=== PATIENT | female | born 1950 | race Caucasian/White ===

== ENCOUNTER 2018-07-20 16:34 | Emergency (ER) | payer BC, MEDICARE ==
[2018-07-20] MEDS ORDERED: HYDROmorphone 0.5 MG/0.5 ML SYRINGE IVPUSH ONE ×3 (17:34→19:46)
[2018-07-20] MEDS ORDERED: methylPREDNISolone Sodium Succinate 125 MG/2 ML SDV IVPUSH ONE (17:34)
[2018-07-20] MEDS ORDERED: Sodium Chloride 0.9% 10 ML Syringe FLUSH PRN (17:34)
[2018-07-20] MEDS ORDERED: Ketorolac 30 MG/ML SDV IVPUSH SCH (17:45)
--- NOTE | 2018-07-20 18:56 | EDM.PDOC ---
ED HPI GENERAL MEDICAL PROBLEM - General Chief Complaint: Lower Extremity Injury/Pain Stated Complaint: LEFT LEG INJURY/PAIN Time Seen by Provider: 07/20/18 17:24 Source of Information: Reports: Patient, RN Notes Reviewed - History of Present Illness INITIAL COMMENTS - FREE TEXT/NARRATIVE: initial hx and exam was done by Yareli Salamanca, 4th year medical student. I have also examined patient. I agree with hx and exam as documented. X rays of L hip are good. She has sciatica. Pain has been treated with IV dilaudid. Discharge instr. as documented. Left Hip Pain Score (Numeric/FACES): 10 - Related Data Allergies Allergy/AdvReac Type Severity Reaction Status Date / Time No Known Allergies Allergy Verified 07/20/18 17:19 Home Meds: Home Meds Acetaminophen/HYDROcodone [[place] 325-5 MG] 1 tab PO Q6HR PRN #20 tablet [Rx] Adalimumab [Humira] 10 mg INJECT ASDIRECTED 07/20/18 [History] Folic Acid 1 mg PO DAILY 07/20/18 [History] Hydroxychloroquine Sulfate [Plaquenil] 200 mg PO BID 07/20/18 [History] Methotrexate Sodium [Methotrexate] 2.5 mg PO TH 07/20/18 [History] Naproxen [Naprosyn] 500 mg PO Q12HR #20 tab 07/20/18 [Rx] Past Medical History Musculoskeletal History: Reports: RA, Other (See Below) Other Musculoskeletal History: left hip issues Social & Family History - Tobacco Use Smoking Status *Q: Former Smoker Used Tobacco, but Quit: Yes Month/Year Tobacco Last Used: 20 yr - Caffeine Use Caffeine Use: Reports: Coffee, Soda Other Caffeine Use: diet coke - Recreational Drug Use Recreational Drug Use: No Review of Systems - Review of Systems Review Of Systems: See Below ED EXAM, GENERAL - Physical Exam Exam: See Below Course - Vital Signs Last Recorded V/S: Last Vital Signs Temp 97.6 F 07/20/18 17:16 Pulse 85 07/20/18 17:16 Resp 20 07/20/18 17:16 BP 184/79 H 07/20/18 17:16 Pulse Ox 99 07/20/18 17:16 - Orders/Labs/Meds Orders: Active Orders 24 hr Category Date Time Status Peripheral IV Care [RC] . DIRECTED Care 07/20/18 17:35 Active Hip Min 2V or 3V w Pelvis Lt [CR] Stat Exams 07/20/18 17:50 Taken Peripheral IV Insertion Adult [OM.PC] Stat Oth 07/20/18 17:34 Ordered Meds: Medications Discontinued Medications Generic Name Dose Route Start Last Admin Trade Name Freq PRN Reason Stop Dose Admin Hydromorphone HCl 0.5 mg 07/20/18 17:34 07/20/18 17:51 Dilaudid IVPUSH 07/20/18 17:35 0.5 mg ONETIME ONE Administration Hydromorphone HCl 0.5 mg 07/20/18 19:08 07/20/18 19:25 Dilaudid IVPUSH 07/20/18 19:09 0.5 mg ONETIME ONE Administration Hydromorphone HCl 0.5 mg 07/20/18 19:46 07/20/18 20:02 Dilaudid IVPUSH 07/20/18 19:47 0.5 mg ONETIME ONE Administration Ketorolac Tromethamine 30 mg 07/20/18 17:45 07/20/18 17:50 Toradol IVPUSH 30 mg ONETIME [place] Administration Methylprednisolone Sodium Succinate 125 mg 07/20/18 17:34 07/20/18 17:49 Solu-Medrol IVPUSH 07/20/18 17:35 125 mg ONETIME ONE Administration Sodium Chloride 10 ml 07/20/18 17:34 07/20/18 17:51 Saline Flush FLUSH 10 ml ASDIRECTED PRN Administration Keep Vein Open Departure - Departure Time of Disposition: 18:55 Disposition: Home, Self-Care 01 Condition: Fair Clinical Impression: Sciatica of left side - Discharge Information Prescriptions: Acetaminophen/HYDROcodone [[place] 325-5 MG] 1 tab PO Q6HR PRN #20 tablet PRN Reason: Pain Naproxen [Naprosyn] 500 mg PO Q12HR #20 tab Instructions: Sciatica, Ohyd-up-Ccvl Referrals: Jeanne Caballero [employer] [Primary Care Provider] - Forms: ED Department Discharge, ED Return to Work/School Form Additional Instructions: rest back, no heavy lifting, alternate heat and ice to L low back as needed, Naprosyn 500 mg twice daily for pain and inflamation. Prednisone as prescribed. You may take tylenol in addition up to 3 times daily for extra pain relief or hydrocodone if needed for severe pain. Do not take tylenol and hydrocodone at the same time. See [place] at the clinic in about 1 week for follow up. Call for appt. Physical Therapy strongly recomended if not much better within 3 to 4 days. - My Orders Last 24 Hours: My Active Orders 07/20/18 17:34 Peripheral IV Insertion Adult [OM.PC] Stat 07/20/18 17:35 Peripheral IV Care [RC] . DIRECTED 07/20/18 17:50 Hip Min 2V or 3V w Pelvis Lt [CR] Stat - Assessment/Plan Last 24 Hours: My Active Orders 07/20/18 17:34 Peripheral IV Insertion Adult [OM.PC] Stat 07/20/18 17:35 Peripheral IV Care [RC] . DIRECTED 07/20/18 17:50 Hip Min 2V or 3V w Pelvis Lt [CR] Stat
--- NOTE | 2018-07-21 07:39 | CR ---
Pelvis and left hip: AP view of the pelvis was obtained as well as AP view of the left hip and lateral view of the left hip. Comparison: No prior pelvis or hip exam. Sclerotic area is identified within the superior left pubic ramus most likely due to bone island. Joint spaces within both hips are maintained. Sacroiliac joints appear within normal limits. Second sclerotic lesion is seen overlying the lower left sacroiliac joint most likely due to bone island. Joint spaces within both hips are maintained. No fracture or dislocation is seen. Mild disc space narrowing and endplate osteophytes are seen within the lower lumbar spine. Impression: 1. Sclerotic areas within the left hemipelvis believed to represent bone islands. 2. Mild degenerative change within the visualized lower lumbar spine. 3. AP pelvis and two-view left hip exam is otherwise unremarkable. Diagnostic code #2
== END 2018-07-20 20:35 | disposition home or self-care (01) ==
LOC: JD.ED 16:34
DX: M54.42 Lumbago with sciatica, left side (principal); Z87.891 Personal history of nicotine dependence; Z79.899 Other long term (current) drug therapy
CPT/HCPCS: 73502; 96374; 96375; 96376; 99283; J1170; J1885; J2930; J7050

== ENCOUNTER → 2021-09-12 | Day surgery (SDC) | payer BC ==
[~2021-09-12] MED LIST: Dexamethasone 4 MG/ML 5 ML MDV ONE; Lactated Ringers 1,000 ML IV SCH; Lidocaine 1%/Sod Bicarbonate in NS 8.4% 1 ML Syringe IDERM PRN; Midazolam 1 MG/ML 2 ML SDV ONE; Ondansetron 4 MG/2 ML SDV ONE; Propofol 200 MG/20 ML SDV ONE; Scopolamine 1.5 MG Transdermal Patch TOP ONE; Sodium Chloride 0.9% 10 ML Syringe FLUSH PRN; ceFAZolin 1 GM Vial ONE; fentaNYL 100 MCG/2 ML SDV ONE
--- NOTE | 2021-09-12 11:53 | PCM.PREANE ---
Preanesthetic Assessment - Procedure Proposed Procedure: Right lower leg mass - Anesthesia/Transfusion/Family Hx Anesthesia History: Prior Anesthesia Reaction Type of Anesthesia Reaction: Excessive Nausea/Vomiting Family History of Anesthesia Reaction: No Transfusion History: No Prior Transfusion(s) Intubation History: Unknown - Review of Systems General: No Symptoms Pulmonary: No Symptoms Cardiovascular: No Symptoms Gastrointestinal: No Symptoms Neurological: No Symptoms Other: Reports: Depression - Physical Assessment NPO Status Date: 09/11/21 NPO Status Time: 18:00 Vital Signs: Last Vital Signs Temp Pulse 71 09/12/21 10:00 Resp 16 09/12/21 10:00 BP 160/58 H 09/12/21 10:00 Pulse Ox 97 09/12/21 10:00 Temp 97.6 Height: 1.57 m Weight: 77.2 kg ASA Class: 2 Mental Status: Alert & Oriented x3 Airway Class: Mallampati = 3 Dentition: Reports: Caries Thyro-Mental Finger Breadths: 2 Mouth Opening Finger Breadths: 2 ROM/Head Extension: Full Lungs: Clear to Auscultation, Normal Respiratory Effort Cardiovascular: Regular Rate, Regular Rhythm, No Murmurs - Lab Values: Labs reviewed and okay to proceed - Imaging/EKG Impressions: EKG NSR HR 62 - Allergies Allergies/Adverse Reactions: Allergies Allergy/AdvReac Type Severity Reaction Status Date / Time No Known Allergies Allergy Verified 09/11/21 13:21 - Acknowledgements Anesthesia Type Planned: MAC Pt an Appropriate Candidate for the Planned Anesthesia: Yes Alternatives and Risks of Anesthesia Discussed w Pt/Guardian: Yes Pt/Guardian Understands and Agrees with Anesthesia Plan: Yes PreAnesthesia Questionnaire HEENT History: Reports: Impaired Vision Cardiovascular History: Reports: None, Hypertension Respiratory History: Reports: Other (See Below) Other Respiratory History: BRONCHITIS Gastrointestinal History: Reports: None Genitourinary History: Reports: None NAIL CUTTER History: Reports: None Musculoskeletal History: Reports: Arthritis, Osteoarthritis, RA, Other (See Below) Other Musculoskeletal History: LUMBAR DEGNERATIVE JOINT DISEASE, LEFT KNEE PAIN, RA Neurological History: Reports: Other (See Below) Other Neuro History: LUMBAR RADICULOPATHY Psychiatric History: Reports: Depression Endocrine/Metabolic History: Reports: None Hematologic History: Reports: None Immunologic History: Reports: None Oncologic (Cancer) History: Reports: None Dermatologic History: Reports: Other (See Below) Other Dermatologic History: INTERTRIGINOUS CANDIDIASIS, SOFT TISSUE MASS - Infectious Disease History Infectious Disease History: Reports: None - Past Surgical History Head Surgeries/Procedures: Reports: None HEENT Surgical History: Reports: Cataract Surgery, Oral Surgery Cardiovascular Surgical History: Reports: None Respiratory Surgical History: Reports: None GI Surgical History: Reports: Appendectomy, EGD Female Surgical History: Reports: Hysterectomy, Oophorectomy Male Surgical History: Reports: None Endocrine Surgical History: Reports: None Musculoskeletal Surgical History: Reports: None Oncologic Surgical History: Reports: None Dermatological Surgical History: Reports: None - SUBSTANCE USE Tobacco Use Status *Q: Former Tobacco User (quit smoking 15 years ago) Tobacco Use Within Last Twelve Months: No Second Hand Smoke Exposure: No Days Per Week of Alcohol Use: 0 Number of Drinks Per Day: 0 Total Drinks Per Week: 0 Recreational Drug Use History: No - HOME MEDS Home Medications: Home Meds Cholecalciferol (Vitamin D3) [Vitamin D3] 2,000 unit PO DAILY 09/11/21 [History] Cyanocobalamin (Vitamin B-12) [Vitamin B-12] 1,000 mcg PO DAILY 09/11/21 [History] Lisinopril/Hydrochlorothiazide [Lisinopril-Hctz 20-25 mg Tab] 1 tab PO DAILY 09/11/21 [History] Venlafaxine [Effexor XR] 75 mg PO DAILY 09/11/21 [History] Vitamin B Complex 1 cap PO DAILY 09/11/21 [History] - CURRENT (IN HOUSE) MEDS Current Meds: Current Medications Lactated Ringer's (Ringers, Lactated) 1,000 mls @ 125 mls/hr IV ASDIRECTED [place] Stop: 09/12/21 23:00 Last Admin: 09/12/21 10:00 Dose: 125 mls/hr Documented by: Lidocaine/Sodium Bicarbonate (Lidocaine 1%/Sod Bicarbonate In Ns 8.4% 1 Ml Syringe) 0.25 ml IDERM ONETIME PRN PRN Reason: Prior to IV Start Stop: 09/12/21 23:00 Last Admin: 09/12/21 10:00 Dose: 0.25 ml Documented by: Sodium Chloride (Sodium Chloride 0.9% 10 Ml Syringe) 10 ml FLUSH ASDIRECTED PRN PRN Reason: Keep Vein Open Stop: 09/12/21 23:00
--- NOTE | 2021-09-12 13:17 | PCM48HPAN ---
Post Anesthesia Note - EVALUATION WITHIN 48HRS OF ANESTHETIC Vital Signs in Normal Range: Yes Patient Participated in Evaluation: Yes Respiratory Function Stable: Yes Airway Patent: Yes Cardiovascular Function Stable: Yes Hydration Status Stable: Yes Pain Control Satisfactory: Yes Nausea and Vomiting Control Satisfactory: Yes Mental Status Recovered: Yes Vital Signs: Last Vital Signs Temp Pulse 71 09/12/21 10:00 Resp 16 09/12/21 10:00 BP 160/58 H 09/12/21 10:00 Pulse Ox 97 09/12/21 10:00 Vital signs at 1308: 138/67 HR 71 RR: 10 97.6 94% RA
--- NOTE | 2021-09-27 06:42 | PCM.OPNOTE ---
- General Post-Op/Procedure Note Date of Surgery/Procedure: 09/12/21 Operative Procedure(s): right leg subcutaneous mass excision Pre Op Diagnosis: right leg subcutaneous mass Post-Op Diagnosis: Same Anesthesia Technique: Local, MAC Primary Surgeon: Raymond Massey Anesthesia Provider: Mago Beasley Pot Maker: Analy Najera EBL in mLs: 5 Complications: None Condition: Good
--- NOTE | 2021-09-27 07:51 | OR ---
DATE OF OPERATION: 09/12/2021 SURGEON: Raymond Massey MD OPERATION PERFORMED: Right leg subcutaneous mass excision. PREOPERATIVE DIAGNOSIS: Right leg subcutaneous mass. POSTOPERATIVE DIAGNOSIS: Right leg subcutaneous mass. ANESTHESIA: Local MAC. ANESTHESIA PROVIDER: Bro Sheehan MACHINE STEMMER: Analy Najera PA-C ESTIMATED BLOOD LOSS: 10 mL. COMPLICATIONS: None. CONDITION: Stable. DESCRIPTION OF PROCEDURE: The patient was identified in the preop holding area. Proper site was marked and identified by surgeon. The patient was taken back to the operating theater, where after adequate anesthesia, the patient's right lower extremity was sterilely prepped and draped in usual sterile fashion. OR time-out was performed. The patient received 2 g IV Ancef. At this time, 0.25% Marcaine and 1% lidocaine were used to anesthetize around the mass on the pretibial region on the midportion of the right tibia. Once this was done, longitudinal incision was made directly over the mass. The mass was identified in the subcutaneous tissues. It was roughly 2.5 cm x 2 cm. It did appear to be free from the soft tissues with good margins and planes with no signs of infiltrating the tissue. There were no signs of infection nor any fluid at this time. This was sent for permanent specimen. Adequate saline was irrigated through the wound and nylon suture was used for closure of the skin. The patient tolerated the procedure well and was sent to the PACU in stable condition in a sterile soft dressing. MMODAL /[id number]
== END | disposition home or self-care (01) ==
LOC: JD.SDS 09:28
PROVIDERS: ATTEND Orthopaedic Surgery
DX: D21.21 Benign neoplasm of connective and other soft tissue of right lower limb, including hip (principal); I10 Essential (primary) hypertension; M06.9 Rheumatoid arthritis, unspecified; Z91.041 Radiographic dye allergy status; Z79.899 Other long term (current) drug therapy; Z90.49 Acquired absence of other specified parts of digestive tract; Z98.890 Other specified postprocedural states; Z87.891 Personal history of nicotine dependence
CPT/HCPCS: 27618; A9270; J0690; J1100; J2250; J2405; J2704; J3010; J7120; 00400

== ENCOUNTER 2021-10-07 08:49 | Day surgery (SDC) | payer BC ==
[~2021-10-07 08:49] MED LIST changes: +Acetaminophen 325 MG Tab PO SCH; -Dexamethasone 4 MG/ML 5 ML MDV ONE; +Morphine 8 MG, EPINEPHrine 0.3 MG, Cefuroxime 750 MG, Ketorolac 30 MG, Sodium Chloride ... PRN; -Ondansetron 4 MG/2 ML SDV ONE; +Pregabalin 25 MG Cap PO SCH; -Scopolamine 1.5 MG Transdermal Patch TOP ONE; +Scopolamine 1.5 MG Transdermal Patch TOP SCH; +Vancomycin 1 GM SDV ONE; -ceFAZolin 1 GM Vial ONE; +oxyCODONE ER 10 MG TAB.ER PO SCH
[2021-10-07] MEDS ORDERED: ceFAZolin 1 GM Vial ONE (09:11)
[2021-10-07] MEDS ORDERED: Lactated Ringers 1,000 ML ONE (09:18)
--- NOTE | 2021-10-07 09:40 | PCM.PREANE ---
Preanesthetic Assessment - Anesthesia/Transfusion/Family Hx Anesthesia History: Prior Anesthesia Reaction Transfusion History: No Prior Transfusion(s) Intubation History: Unknown - Review of Systems General: No Symptoms Pulmonary: No Symptoms Cardiovascular: No Symptoms Gastrointestinal: No Symptoms Neurological: No Symptoms Other: Reports: None - Physical Assessment NPO Status Date: 10/06/21 NPO Status Time: 22:00 Vital Signs: Last Vital Signs Temp 97.0 F 10/07/21 07:17 Pulse 75 10/07/21 07:17 Resp 16 10/07/21 07:17 BP 152/77 H 10/07/21 07:17 Pulse Ox 95 10/07/21 07:17 Height: 1.57 m Weight: 76.4 kg ASA Class: 2 Mental Status: Alert & Oriented x3 Airway Class: Mallampati = 3 Dentition: Reports: Normal Dentition, [place](s) ROM/Head Extension: Full Lungs: Clear to Auscultation, Normal Respiratory Effort Cardiovascular: Regular Rate, Regular Rhythm - Lab Values: Laboratory Last Values Blood Type A POSITIVE 10/07/21 07:37 Gel Antibody Screen Negative 10/07/21 07:37 - Allergies Allergies/Adverse Reactions: Allergies Allergy/AdvReac Type Severity Reaction Status Date / Time No Known Allergies Allergy Verified 10/07/21 09:22 - Acknowledgements Anesthesia Type Planned: Spinal Pt an Appropriate Candidate for the Planned Anesthesia: Yes Alternatives and Risks of Anesthesia Discussed w Pt/Guardian: Yes Pt/Guardian Understands and Agrees with Anesthesia Plan: Yes PreAnesthesia Questionnaire HEENT History: Reports: Impaired Vision Cardiovascular History: Reports: Hypertension Respiratory History: Reports: Other (See Below) Other Respiratory History: BRONCHITIS Gastrointestinal History: Reports: None Genitourinary History: Reports: None WELDING MACHINE OPERATOR RESISTANCE History: Reports: None Musculoskeletal History: Reports: Arthritis, Osteoarthritis, RA, Other (See Below) Other Musculoskeletal History: LUMBAR DEGNERATIVE JOINT DISEASE, LEFT KNEE PAIN, RA Neurological History: Reports: Other (See Below) Other Neuro History: LUMBAR RADICULOPATHY Psychiatric History: Reports: Depression Endocrine/Metabolic History: Reports: None Hematologic History: Reports: None Immunologic History: Reports: None Oncologic (Cancer) History: Reports: None Dermatologic History: Reports: Other (See Below) Other Dermatologic History: INTERTRIGINOUS CANDIDIASIS, SOFT TISSUE MASS - Infectious Disease History Infectious Disease History: Reports: None - Past Surgical History Head Surgeries/Procedures: Reports: None HEENT Surgical History: Reports: Cataract Surgery, Oral Surgery Cardiovascular Surgical History: Reports: None Respiratory Surgical History: Reports: None GI Surgical History: Reports: Appendectomy, EGD Female Surgical History: Reports: Hysterectomy, Oophorectomy Male Surgical History: Reports: None Endocrine Surgical History: Reports: None Neurological Surgical History: Reports: None Musculoskeletal Surgical History: Reports: None Oncologic Surgical History: Reports: None Dermatological Surgical History: Reports: None - SUBSTANCE USE Tobacco Use Status *Q: Former Tobacco User Recreational Drug Use History: No - HOME MEDS Home Medications: Home Meds Cholecalciferol (Vitamin D3) [Vitamin D3] 2,000 unit PO DAILY 09/11/21 [History] Cyanocobalamin (Vitamin B-12) [Vitamin B-12] 1,000 mcg PO DAILY 09/11/21 [History] Lisinopril/Hydrochlorothiazide [Lisinopril-Hctz 20-25 mg Tab] 1 tab PO DAILY 09/11/21 [History] Vitamin B Complex 1 cap PO DAILY 09/11/21 [History] Apixaban [Eliquis] 2.5 mg PO BID #70 tablet 10/07/21 [Rx] Cyclobenzaprine [Flexeril] 10 mg PO BID PRN #20 tab 10/07/21 [Rx] oxyCODONE 5 - 10 mg PO Q4H PRN #40 tab 10/07/21 [Rx] - CURRENT (IN HOUSE) MEDS Current Meds: Current Medications Acetaminophen (Acetaminophen 325 Mg Tab) 975 mg PO ONETIME [place] Stop: 10/07/21 12:00 Last Admin: 10/07/21 07:40 Dose: 975 mg Documented by: Morphine Sulfate 8 mg/Epinephrine HCl 0.3 mg/Cefuroxime Sodium 750 mg/Ketorolac Tromethamine 30 mg/Sodium Chloride 7.9 ml 0 mg .XX ASDIRECTED PRN PRN Reason: Pain Stop: 10/07/21 16:00 Lactated Ringer's (Ringers, Lactated) 1,000 mls @ 125 mls/hr IV ASDIRECTED [place] Stop: 10/07/21 23:00 Last Admin: 10/07/21 07:35 Dose: 125 mls/hr Documented by: Lidocaine/Sodium Bicarbonate (Lidocaine 1%/Sod Bicarbonate In Ns 8.4% 1 Ml Syringe) 0.25 ml IDERM ONETIME PRN PRN Reason: Prior to IV Start Stop: 10/07/21 18:00 Last Admin: 10/07/21 07:35 Dose: 0.25 ml Documented by: Oxycodone HCl (Oxycodone Er 10 Mg Tab.Er) 10 mg PO ONETIME [place] Stop: 10/07/21 12:00 Last Admin: 10/07/21 07:40 Dose: 10 mg Documented by: Pregabalin (Pregabalin 25 Mg Cap) 50 mg PO ONETIME [place] Stop: 10/07/21 12:00 Last Admin: 10/07/21 07:40 Dose: 50 mg Documented by: Scopolamine (Scopolamine 1.5 Mg Transdermal Patch) 1.5 mg TOP ONETIME [place] Stop: 10/07/21 18:00 Last Admin: 10/07/21 07:45 Dose: 1.5 mg Documented by: Sodium Chloride (Sodium Chloride 0.9% 10 Ml Syringe) 10 ml FLUSH ASDIRECTED PRN PRN Reason: Keep Vein Open Stop: 10/07/21 18:00 Discontinued Medications Cefazolin Sodium (Cefazolin 1 Gm Vial) Confirm Administered Dose 2 gm .ROUTE .STK-MED ONE Stop: 10/07/21 09:12 Fentanyl (Fentanyl 100 Mcg/2 Ml Sdv) Confirm Administered Dose 100 mcg .ROUTE .STK-MED ONE Stop: 10/07/21 07:22 Lactated Ringer's (Ringers, Lactated) Confirm Administered Dose 1,000 mls @ as directed .ROUTE .STK-MED ONE Stop: 10/07/21 09:19 Midazolam HCl (Midazolam 1 Mg/Ml 2 Ml Sdv) Confirm Administered Dose 2 mg .ROUTE .STK-MED ONE Stop: 10/07/21 07:22 Propofol (Propofol 200 Mg/20 Ml Sdv) Confirm Administered Dose 400 mg .ROUTE .STK-MED ONE Stop: 10/07/21 07:22 Tranexamic Acid (Tranexamic Acid 1,000 Mg/10 Ml Amp) Confirm Administered Dose 1,000 mg .ROUTE .STK-MED ONE Stop: 10/07/21 07:44 Vancomycin HCl (Vancomycin 1 Gm Sdv) Confirm Administered Dose 1 gm .ROUTE .STK- MED ONE Stop: 10/07/21 07:44
[2021-10-07] MEDS ORDERED: ePHEDrine 50 MG/ML SDV ONE (11:00)
--- NOTE | 2021-10-07 11:03 | CR ---
Pelvis and right hip: AP view of the pelvis was obtained centered to both hips as well as crosstable lateral view of the right hip. Comparison: Prior CT right hip study of 09/27/21. Right hip prosthesis is noted. Components are aligned. Underlying bony structures show nothing acute. Slight soft tissue air is seen around the right hip. Impression: 1. Satisfactory postoperative radiographic appearance of right hip prosthesis. Diagnostic code #2
[2021-10-07] MEDS ORDERED: oxyCODONE 5 MG Tab PO PRN (11:45)
[2021-10-07] MEDS ORDERED: Cyclobenzaprine 10 MG Tab PO PRN (11:45)
--- NOTE | 2021-10-07 14:08 | PCM.POSTAN ---
POST ANESTHESIA ASSESSMENT - MENTAL STATUS Mental Status: Alert, Oriented - VITAL SIGNS Vital Signs: postoperative Vital Signs 102/53 69 HR 95% 11 RR 97.8 F - RESPIRATORY Respiratory Status: Respiratory Rate WNL, Airway Patent, O2 Saturation Stable - CARDIOVASCULAR CV Status: Pulse Rate WNL, Low Blood Pressure - GASTROINTESTINAL GI Status: No Symptoms - PAIN Pain Score: 0 - POST OP HYDRATION Hydration Status: Adequate & Stable
--- NOTE | 2021-10-07 14:17 | PCM48HPAN ---
Post Anesthesia Note - EVALUATION WITHIN 48HRS OF ANESTHETIC Vital Signs in Normal Range: Yes Patient Participated in Evaluation: Yes Respiratory Function Stable: Yes Airway Patent: Yes Cardiovascular Function Stable: Yes Hydration Status Stable: Yes Pain Control Satisfactory: Yes Nausea and Vomiting Control Satisfactory: Yes Mental Status Recovered: Yes Vital Signs: Last Vital Signs Temp 36.6 C 10/07/21 12:00 Pulse 69 10/07/21 12:00 Resp 12 10/07/21 12:00 BP 93/55 L 10/07/21 12:00 Pulse Ox 92 L 10/07/21 12:00
--- NOTE | 2021-10-13 18:31 | PCM.OPNOTE ---
- General Post-Op/Procedure Note Date of Surgery/Procedure: 10/07/21 Operative Procedure(s): right total hip arthroplasty with [employer] robotics Pre Op Diagnosis: right hip osteoarthrosis Post-Op Diagnosis: Same Anesthesia Technique: Local, MAC, Spinal Primary Surgeon: Raymond Massey Anesthesia Provider: Wilton Rahman Store Merchandiser: Analy Najera Store Merchandiser: Sandy Bain EBL in mLs: 50 Complications: None Condition: Good Free Text/Narrative:: 52 36-5 5
--- NOTE | 2021-10-27 18:15 | OR ---
DATE OF OPERATION: 10/07/2021 SURGEON: Raymond Massey MD OPERATION PERFORMED: Right total hip arthroplasty with [employer] robot[employer]. PREOPERATIVE DIAGNOSIS: Right hip osteoarthrosis. POSTOPERATIVE DIAGNOSIS: Right hip osteoarthrosis. ANESTHESIA: Local MAC with spinal. ANESTHESIA PROVIDER: Rama Osei. ASSISTANTS: Analy Najera PA-C; and Sandy Bain LPN. ESTIMATED FLUID LOSS: 50 mL. COMPLICATIONS: None. CONDITION: Stable. IMPLANT: 1. [place] size 52 mm solid Tritanium II acetabular cup. 2. 36 -5 Biolox femoral head. 3. Mag size 5 Accolade II stem. DESCRIPTION OF PROCEDURE: The patient was identified in the preoperative holding area. Proper site was marked and identified by the surgeon. The patient was taken back to the operating theater, where after adequate anesthesia, the patient was placed in a left lateral decubitus position. Axillary roll was placed. Pegs were placed and well padded. The patient's gluteal fold was parallel to the floor. Right hip was then sterilely prepped and draped in the usual sterile fashion. OR time- out was performed. The patient received 2 g of IV Ancef. Three small poke hole incisions were made over the iliac crest 3 fingerbreadths posterior to the ASIS, three 4.0 Schanz pins were then placed and the [place] Dawson robotic array was placed down onto the iliac crest. Standard posterior incision was made. This was taken down to the IT band and gluteal fascia which was then incised along the incisional length. Charnley retractor was then placed. A checkpoint was placed in the greater trochanter and leg lengths were marked using the [place] [employer] robotics. Takedown of short external rotators as well as capsulotomy was performed from the level of the piriformis down to the lesser trochanter. Hip was dislocated. Neck cut was completed and found to be adequate. Anterior and posterior acetabular retractors were placed. Circumferential removal of the pulvinar as well as the labrum was done at this time. Checkpoint was placed on the superior rim of the acetabulum. All 3 checkpoints were then made on the iliac crest. 15 points were obtained intra-articularly and extra-articularly for the Mag Dawson robotic plan. At this time, the [employer] robotic arm was brought in and a 52 mm reamer was used to ream medially until all green was gone from the plan. A 52 mm solid Tritanium II acetabular cup was then placed on the [employer] robotic arm, was impacted in place in 45 degrees of abduction and 20 degrees of anteversion. The 36 mm flat liner was then impacted in place. Attention was turned to the femur. Box chisel was used out laterally. Starter awl was placed down the canal. Starting with a size 0 broach, I was able to broach up to a size 5 which was found to be rotationally and vertically stable. Trial implants with 127-degree neck were then placed. The patient had adequate alevism of leg lengths and was stable throughout her range of motion with a 36 -5 trial head. Trial implants were then removed. Size 5 Accolade II stem was impacted in place along with a 36 -5 Biolox femoral head. Hip was then reduced. #5 Ethibond was used for closure of the short external rotators and capsule. 1 L of pulse lavage irrigation with Ancef was irrigated through the hip along with 400 mL of IrriSept irrigation. Topical tranexamic acid and vancomycin powder were applied. Periarticular injection was completed. A #2 barbed suture was used for closure of the IT band and gluteal fascia. 2-0 Vicryl was used subcutaneously and Prineo was used for skin closure. The patient had a sterile soft dressing applied. Please note, the patient had all checkpoints and pins removed before closure. ESTIMATED BLOOD LOSS: MMODAL /[id number]
== END 2021-10-07 16:10 | disposition home or self-care (01) ==
LOC: JD.SDS 08:49
PROVIDERS: ATTEND Orthopaedic Surgery
DX: M16.11 Unilateral primary osteoarthritis, right hip (principal); I10 Essential (primary) hypertension; M06.9 Rheumatoid arthritis, unspecified; F32.A Depression, unspecified; Z91.041 Radiographic dye allergy status; Z90.49 Acquired absence of other specified parts of digestive tract; Z98.890 Other specified postprocedural states; Z87.891 Personal history of nicotine dependence
CPT/HCPCS: 27130; 36415; 73501; 86850; 86900; 86901; 97110; 97116; 97161; A9270; C1713; C1776; J0171; J0690; J0697; J1885; J2250; J2270; J2370; J2704; J3010; J3370; J7120; 01214

== ENCOUNTER 2021-11-25 09:32 | Day surgery (SDC) | payer BC, MEDICARE ==
[~2021-11-25 09:32] MED LIST changes: -Midazolam 1 MG/ML 2 ML SDV ONE; -Morphine 8 MG, EPINEPHrine 0.3 MG, Cefuroxime 750 MG, Ketorolac 30 MG, Sodium Chloride ... PRN; -Propofol 200 MG/20 ML SDV ONE; -Scopolamine 1.5 MG Transdermal Patch TOP SCH; -Sodium Chloride 0.9% 10 ML Syringe FLUSH PRN; +Sodium Chloride 0.9% 10 ML Syringe FLUSH SCH; -Vancomycin 1 GM SDV ONE; -fentaNYL 100 MCG/2 ML SDV ONE
[2021-11-25] MEDS ORDERED: Scopolamine 1.5 MG Transdermal Patch TOP ONE (09:55)
[2021-11-25] MEDS ORDERED: Propofol 200 MG/20 ML SDV ONE ×2 (09:56→12:23)
[2021-11-25] MEDS ORDERED: Midazolam 1 MG/ML 2 ML SDV ONE (09:57)
[2021-11-25] MEDS ORDERED: Lidocaine 1% 4 ML ONE (09:57)
[2021-11-25] MEDS ORDERED: fentaNYL 100 MCG/2 ML SDV ONE (09:57)
[2021-11-25] MEDS ORDERED: ceFAZolin 1 GM Vial ONE (09:57)
[2021-11-25] MEDS ORDERED: Vancomycin 1 GM SDV ONE (11:05)
[2021-11-25] MEDS ORDERED: Lactated Ringers 1,000 ML ONE (11:40)
[2021-11-25] MEDS ORDERED: ePHEDrine 50 MG/ML SDV ONE (12:03)
[2021-11-25] MEDS ORDERED: diphenhydrAMINE 50 MG/ML SDV IVPUSH PRN (12:16)
[2021-11-25] MEDS ORDERED: fentaNYL 100 MCG/2 ML SDV IVPUSH PRN (12:16)
[2021-11-25] MEDS ORDERED: Ondansetron 4 MG/2 ML SDV IVPUSH PRN (12:16)
[2021-11-25] MEDS: Morphine 8 MG, EPINEPHrine 0.3 MG, Cefuroxime 750 MG, Ketorolac 30 MG, Sodium Chloride ... PRN ×10 (12:19→12:43)
[2021-11-25] MEDS: Vancomycin 1 GM SDV ONE ×2 (12:19→12:43)
[2021-11-25] MEDS ORDERED: Ondansetron 4 MG/2 ML SDV ONE (12:54)
[2021-11-25] MEDS ORDERED: oxyCODONE 5 MG Tab PO PRN (15:16)
== END 2021-11-25 16:18 | disposition home or self-care (01) ==
LOC: JD.SDS 09:32
PROVIDERS: ATTEND Orthopaedic Surgery
DX: M16.12 Unilateral primary osteoarthritis, left hip (principal); F32.A Depression, unspecified; I10 Essential (primary) hypertension; M06.9 Rheumatoid arthritis, unspecified; Z79.899 Other long term (current) drug therapy; Z90.49 Acquired absence of other specified parts of digestive tract; Z98.890 Other specified postprocedural states; Z87.891 Personal history of nicotine dependence
CPT/HCPCS: 27130; 36415; 73501; 86850; 86900; 86901; 97116; 97161; A9270; C1713; C1776; J0171; J0690; J0697; J1885; J2250; J2270; J2405; J2704; J3010; J3370; J7120; 01214

== ENCOUNTER 2022-04-10 10:25 | Day surgery (SDC) | payer BC, MEDICARE ==
[~2022-04-10 10:25] MED LIST changes: -Acetaminophen 325 MG Tab PO SCH; +Lidocaine 1% 4 ML ONE; -Pregabalin 25 MG Cap PO SCH; +Propofol 200 MG/20 ML SDV ONE; +Sodium Chloride 0.9% 10 ML Syringe FLUSH PRN; -oxyCODONE ER 10 MG TAB.ER PO SCH
[2022-04-10] MEDS ORDERED: Propofol 200 MG/20 ML SDV ONE (12:30)
== END 2022-04-10 13:40 | disposition home or self-care (01) ==
LOC: JD.SDS 10:25
PROVIDERS: ATTEND Surgery
DX: D12.0 Benign neoplasm of cecum (principal); D12.3 Benign neoplasm of transverse colon; F32.A Depression, unspecified; I10 Essential (primary) hypertension; H54.7 Unspecified visual loss; Z90.49 Acquired absence of other specified parts of digestive tract; Z86.718 Personal history of other venous thrombosis and embolism; Z87.891 Personal history of nicotine dependence; Z79.899 Other long term (current) drug therapy
CPT/HCPCS: 45380; 45385; J2704; J7120; 00811

== ENCOUNTER 2022-11-19 10:16 | Emergency (ER) | payer BC, MEDICARE ==
[2022-11-19] MEDS ORDERED: HYDROmorphone 0.5 MG/0.5 ML Syringe IVPUSH ONE (10:54)
[2022-11-19] MEDS ORDERED: Sodium Chloride 0.9% 1,000 ML IV SCH (11:00)
[2022-11-19] MEDS ORDERED: Iopamidol 612 MG/ML 100 ML Bottle IVPUSH ONE (11:11)
[2022-11-19] MEDS: Sodium Chloride 0.9% 10 ML Syringe FLUSH PRN ×2 (11:12→11:31)
[2022-11-19] MEDS ORDERED: Iopamidol 755 Mg/ML 100 ML Bottle IVPUSH ONE (12:21)
[2022-11-19] MEDS ORDERED: Sodium Chloride 0.9% 10 ML Syringe FLUSH PRN (12:21)
[2022-11-19] MEDS ORDERED: Sodium Chloride 0.9% 100 ML IV SCH (12:30)
== END 2022-11-19 12:20 | disposition home or self-care (01) ==
LOC: JD.ED 10:16
DX: I26.93 Single subsegmental thrombotic pulmonary embolism without acute cor pulmonale (principal); I10 Essential (primary) hypertension; Z79.01 Long term (current) use of anticoagulants; Z79.899 Other long term (current) drug therapy
CPT/HCPCS: 36415; 71275; 74177; 83605; 84484; 85610; 85730; 93005; 96361; 96374; 99284; J1170; J3490; J7030; Q9967

== ENCOUNTER 2023-10-08 15:07 | Emergency (ER) | payer BC, MEDICARE ==
[2023-10-08] MEDS ORDERED: HYDROmorphone 0.5 MG/0.5 ML Syringe IVPUSH ONE (15:47)
[2023-10-08] MEDS ORDERED: Sodium Chloride 0.9% 1,000 ML IV STA (15:47)
[2023-10-08] MEDS ORDERED: Sodium Chloride 0.9% 10 ML Syringe FLUSH PRN (15:47)
[2023-10-08] MEDS ORDERED: Ondansetron 4 MG/2 ML SDV IVPUSH ONE (15:47)
[2023-10-08 16:03] LABS: BASOPHILS PERCENT AUTO 0.6 % (0.0-1.0); EOSINOPHILS ABSOLUTE AUTO 0.1 K/mm3 (0.0-0.4); EOSINOPHILS PERCENT AUTO 1.7 % (0.0-6.0); HEMATOCRIT 36.9 % (37.0-47.0); HEMOGLOBIN 12.3 gm/dl (12.0-16.0); IMMATURE GRAN ABSOLUTE AUTO 0.01 K/mm3 (0.00-0.05); IMMATURE GRAN PERCENT AUTO 0.2 % (0.0-0.4); LYMPHOCYTES ABSOLUTE AUTO 1.6 K/mm3 (1.0-4.8); MEAN CORPUSCULAR HEMOGLOBIN 30.1 pg (28.0-32.0); MEAN CORPUSCULAR HGB CONC 33.3 g/dl (32.0-36.0); MEAN CORPUSCULAR VOLUME 90.4 fl (83.0-99.0); MEAN PLATELET VOLUME 9.3 fl (9.4-12.3); MONOCYTES ABSOLUTE AUTO 0.4 K/mm3 (0.0-0.8); MONOCYTES PERCENT AUTO 6.5 % (0.0-8.0); NEUTROPHILS ABSOLUTE AUTO 3.3 K/mm3 (1.8-7.7); PLATELET COUNT,PLT 249 K/mm3 (150-400); RED BLOOD CELL COUNT 4.08 M/mm3 (4.10-5.30)
[2023-10-08 16:32] LABS: A/G RATIO 0.9 (1-2); ALBUMIN 3.5 g/dl (3.4-5.0); ANION GAP 13.3 (5-15); BILIRUBIN TOTAL 0.2 mg/dL (0.2-1.0); BUN/CREATININE RATIO 32.9 (14-18); C-REACTIVE PROTEIN 1.6 mg/dL (<1.0); CALCIUM 9.5 mg/dL (8.5-10.1); CREATININE 0.7 mg/dL (0.55-1.02); EST CRCL DRUG DOSING (CG) 58.3 mL/min; POTASSIUM,K 3.3 mEq/L (3.5-5.1); PROTEIN TOTAL,TP 7.5 g/dl (6.4-8.2)
[2023-10-08] MEDS ORDERED: Iopamidol 755 Mg/ML 100 ML Bottle IVPUSH ONE (17:27)
[2023-10-08] MEDS ORDERED: Sodium Chloride 0.9% 100 ML IV SCH (17:30)
[2023-10-08 18:57] LABS: APPEARANCE,URINE CLEAR (Clear); BILIRUBIN,URINE NEGATIVE (Negative); COLOR,URINE YELLOW (Yellow); GLUCOSE,URINE NEGATIVE (Negative); KETONES,URINE 1+ (Negative); LEUKOCYTE ESTERASE,URINE NEGATIVE (Negative); NITRITE,URINE NEGATIVE (Negative); OCCULT BLOOD,URINE NEGATIVE (Negative); PH,URINE 6.5 (5.0-8.0); PROTEIN,URINE NEGATIVE (Negative); UROBILINOGEN,URINE 0.2 (0.2-1.0)
[2023-10-08 19:09] LABS: BACTERIA,URINE FEW /hpf (FEW); RBC,URINE 0-5 /hpf (0-5); SQUAMOUS EPITHELIAL CELLS,UR 0-5 /hpf (0-5); WBC,URINE 0-5 /hpf (0-5)
[2023-10-08 19:10] LABS: MUCUS,URINE NOT SEEN /hpf (FEW)
== END 2023-10-08 19:32 | disposition home or self-care (01) ==
LOC: JD.ED 15:07
DX: M54.50 Low back pain, unspecified (principal); I10 Essential (primary) hypertension; Z79.899 Other long term (current) drug therapy
CPT/HCPCS: 36415; 71275; 74177; 80053; 81001; 85025; 85379; 86140; 93005; 99284; J3490; J7030; Q9967

== ENCOUNTER 2024-02-05 12:33 | Emergency (ER) | payer OTHER, BC, MEDICARE | END 2024-02-05 14:55 | disposition home or self-care (01) | LOC: JD.ED 12:33 | DX: S82.041A Displaced comminuted fracture of right patella, initial encounter for closed fracture (principal); I10 Essential (primary) hypertension; Z86.16 Personal history of COVID-19; Z79.899 Other long term (current) drug therapy; Z90.710 Acquired absence of both cervix and uterus; W01.0XXA Fall on same level from slipping, tripping and stumbling without subsequent striking against object, initial encounter; Y93.89 Activity, other specified | CPT/HCPCS: 73560-26-RT; 73560-RT; 99283 ==

== ENCOUNTER 2024-12-01 06:30 | Day surgery (SDC) | payer BC, MEDICARE ==
[2024-12-01] MEDS: oxyCODONE ER 10 MG TAB.ER PO SCH (06:18)
[2024-12-01] MEDS: Pregabalin 25 MG Cap PO SCH (06:18)
[2024-12-01] MEDS: Acetaminophen 325 MG Tab PO SCH (06:18)
[~2024-12-01 06:30] MED LIST changes: +Dexamethasone 4 MG/ML 5 ML MDV ONE; +EPINEPHrine 1 MG/ML SDV ONE; -Lidocaine 1% 4 ML ONE; -Lidocaine 1%/Sod Bicarbonate in NS 8.4% 1 ML Syringe IDERM PRN; +Ondansetron 4 MG/2 ML SDV ONE; +Ropivacaine 0.5% 5 MG/ML 30 ML SDV ONE; +ceFAZolin 2 GM Vial ONE; +dexmedeTOMIDine HCl 200 MCG/2 ML SDV ONE; +fentaNYL 100 MCG/2 ML SDV ONE
[2024-12-01] MEDS ORDERED: ePHEDrine 50 MG/ML SDV ONE (07:14)
[2024-12-01] MEDS ORDERED: Propofol 200 MG/20 ML SDV ONE (07:39)
[2024-12-01] MEDS ORDERED: Lactated Ringers 1,000 ML ONE (07:42)
[2024-12-01] MEDS ORDERED: Phenylephrine 1% 10 MG/ML SDV ONE (07:54)
[2024-12-01] MEDS: Morphine 8 MG, EPINEPHrine 0.3 MG, Cefuroxime 750 MG, Ketorolac 30 MG, Sodium Chloride ... PRN (08:01)
[2024-12-01] MEDS: VANCOmycin 1 GM SDV ONE (08:05)
[2024-12-01] MEDS: Tranexamic Acid 1,000 MG/10 ML Vial ONE (08:05)
[2024-12-01] MEDS ORDERED: Ondansetron 4 MG/2 ML SDV IVPUSH PRN (08:42)
[2024-12-01] MEDS ORDERED: fentaNYL 100 MCG/2 ML SDV IVPUSH PRN (08:42)
[2024-12-01] MEDS ORDERED: HYDROmorphone 0.5 MG/0.5 ML Syringe IVPUSH PRN (08:42)
[2024-12-01] MEDS: oxyCODONE 5 MG Tab PO PRN (10:41)
== END 2024-12-01 13:46 | disposition home or self-care (01) ==
LOC: JD.SDS 06:30
PROVIDERS: ATTEND Orthopaedic Surgery
DX: M17.11 Unilateral primary osteoarthritis, right knee (principal); I10 Essential (primary) hypertension; E78.5 Hyperlipidemia, unspecified; Z79.899 Other long term (current) drug therapy; Z87.891 Personal history of nicotine dependence
CPT/HCPCS: 73560-26-RT; 73560-RT; 97110-GP; 97116-GP; 97162-GP; A9270-GY; J0171; J0690; J0697; J1100; J1885; J2272; J2371; J2405; J2704; J2795; J3010; J3490; J7120